=== PATIENT | female | born 1945 | race Caucasian/White ===

== ENCOUNTER 2016-10-18 21:33 | Emergency (ER) | payer MEDICARE, MEDICAID ==
[2016-10-18] MEDS ORDERED: IBUPROFEN 600 MG TABLET ONE (21:47)
--- NOTE | 2016-10-19 07:47 | RAD ---
KNEE- RIGHT 4 OR MORE VIEWS COMPARISON: None. HISTORY: 71-year-old female who fell today and has left knee pain. Initial encounter. VIEWS: Left knee AP, internal rotation, external rotation, and lateral FINDINGS: Bones: Chronic defect in the upper outer margin of the patella. No fracture. Joints: Normal Soft tissue: Normal. IMPRESSION: 1. No fracture. 2. Incidentally noted bipartite patella.
== END 2016-10-18 22:48 | disposition home or self-care (01) ==
LOC: ED 21:33
DX: S83.92XA Sprain of unspecified site of left knee, initial encounter (principal); S93.401A Sprain of unspecified ligament of right ankle, initial encounter; W00.0XXA Fall on same level due to ice and snow, initial encounter; Y92.9 Unspecified place or not applicable
CPT/HCPCS: 73564; 99284; 99283; A9270

== ENCOUNTER 2017-01-21 08:29 | Emergency (ER) | payer MEDICARE, MEDICAID | END 2017-01-21 09:10 | disposition home or self-care (01) | LOC: ED 08:29 | DX: L08.89 Other specified local infections of the skin and subcutaneous tissue (principal); J44.9 Chronic obstructive pulmonary disease, unspecified; Z91.040 Latex allergy status; Z87.891 Personal history of nicotine dependence; Y84.8 Other medical procedures as the cause of abnormal reaction of the patient, or of later complication, without mention of misadventure at the time of the procedure; Y92.9 Unspecified place or not applicable ==